=== PATIENT | female | born 1965 | race Caucasian/White ===

== ENCOUNTER → 2021-08-10 10:26 | Outpatient (CLI) | payer OTHER, SELFPAY ==
--- NOTE | 2021-08-10 | DI.MG.S_ITS ---
BILATERAL DIGITAL SCREENING MAMMOGRAM 3D/2D WITH CAD WITH AUGMENTATION: 08/10/2021 CLINICAL: Routine screening. Comparison is made to exams dated: 05/09/2017 mammogram and 07/14/2018 mammogram - outside facility. There are scattered fibroglandular elements in both breasts. Current study was also evaluated with a Computer Aided Detection (CAD) system. No significant masses, calcifications, or other findings are seen in either breast. There has been no significant interval change. IMPRESSION: NEGATIVE There is no mammographic evidence of malignancy. A 1 year screening mammogram is recommended. This exam was interpreted at Station ID: [id number]. NOTE: For mammograms, a report in lay terms will be sent to the patient. Approximately 15% of breast malignancies will not be visualized mammographically. In the management of a palpable breast mass, a negative mammogram must not discourage biopsy of a clinically suspicious lesion. Electronically Signed By: Sam Castaneda M.D., jr/tyrone:08/12/2021 08:51:50 letter sent: Normal Exam ACR BI-RADS Category 1: Negative 3341F
== END ==
PROVIDERS: PCP Nurse Practitioner Family; Referring Provider Nurse Practitioner Family; Visit Provider Nurse Practitioner Family
DX: Z12.31 Encounter for screening mammogram for malignant neoplasm of breast (principal)
CPT/HCPCS: 77063; 77067

== ENCOUNTER → 2022-03-15 07:56 | Outpatient (CLI) | payer OTHER, SELFPAY ==
[2022-03-15 09:34] LABS: Add Manual Diff / Slide Review NO; Basophils Absolute Auto 0 /uL (0-100); Basophils Percent Auto 0.8 % (0-2); Eosinophils Absolute Auto 100 /uL (0-450); Eosinophils Percent Auto 1.5 % (2-4); Hematocrit 42.3 % (36-46); Hemoglobin 14.1 g/dL (12.0-16.0); Lymphocytes Absolute Auto 1500 /uL (1100-4500); Lymphocytes Percent Auto 33.9 % (25-40); Mean Corpuscular HGB Conc 33.5 % (30-36); Mean Corpuscular Hemoglobin 29.4 PG (26-34); Mean Corpuscular Volume 87.7 fL (80-100); Monocytes Absolute Auto 200 /uL (0-900); Monocytes Percent Auto 5.3 % (3-14); Neutrophils Absolute Auto 2500 /uL (1500-7000); Neutrophils Percent Auto 58.5 % (50-75); Platelet Count 204 X10^3/uL (150-400); Red Blood Cell Count 4.82 X10^6/uL (4.0-5.2); Red Cell Distribution Width 13.9 % (11.6-14.8); White Blood Cell Count 4.3 X10^3/uL (4.5-11.0)
[2022-03-15 09:54] LABS: Erythrocyte Sedimentation Rate 2 MM/HR (0-20)
[2022-03-15 10:10] LABS: Alanine Aminotransferase 27 IU/L (<35); Albumin 4.4 g/dL (3.5-5.0); Albumin Globulin Ratio 1.6 (1.0-2.8); Alkaline Phosphatase 42 U/L (38-126); Amylase 53 U/L (30-110); Aspartate Aminotransferase 32 IU/L (14-36); BUN Creatinine Ratio 24.6 (6-22); Bilirubin Total 1.1 mg/dL (0.2-1.3); Blood Urea Nitrogen 17 mg/dL (7-17); Calcium 9.1 mg/dL (8.4-10.2); Carbon Dioxide 26 mmol/L (22-32); Chloride 105 mmol/L (98-107); Estimated Glomerular Filt Rate > 60 mL/min (>60); Globulin 2.7 g/dL (1.7-4.1); Glucose 80 mg/dL (70-100); HEMOLYSIS < 15 (0-50); Lipase 103 U/L (23-300); Potassium 4.8 mmol/L (3.4-5.1); Sodium 141 mmol/L (137-145); Total Protein 7.1 g/dL (6.3-8.2)
[2022-03-15 10:14] LABS: High Sensitivity CRP - Cardiac 0.5 mg/L (1.0-3.0)
[2022-03-15 10:48] LABS: TSH w/ Reflex to FT4 0.11 uIU/mL (0.47-4.68)
[2022-03-15 11:22] LABS: Free T4, Direct Thyroxine 0.87 ng/dL (0.78-2.19)
[2022-03-17 07:42] LABS: Interpretation Negative (Negative)
== END ==
PROVIDERS: PCP Nurse Practitioner Family
DX: R10.9 Unspecified abdominal pain (principal)
CPT/HCPCS: 36415; 80053; 82150; 83013; 83690; 84439; 84443; 85025; 85651; 86140

== ENCOUNTER → 2022-04-30 14:39 | Outpatient (CLI) | payer OTHER, SELFPAY ==
--- NOTE | 2022-04-30 14:40 | DI.CT.S_ITS ---
PROCEDURE: CT ABDOMEN PELVIS W CON INDICATIONS: ABNORMAL TSH, ABDOMINAL PAIN TECHNIQUE: After the administration of oral and intravenous contrast, axial sections were acquired from the lung bases to the pubic symphysis. Coronal and sagittal reformats were performed. For radiation dose reduction, the following was used: automated exposure control, adjustment of mA and/or kV according to patient size. COMPARISON:None. FINDINGS: Image quality: Excellent. Lung bases: Unremarkable. The inferior aspects of the bilateral breast implants are intact. Heart: No significant findings. ABDOMEN: Liver: Unremarkable. Gallbladder: Surgically absent. Biliary ducts: Unremarkable. Pancreas: Unremarkable. Spleen: Unremarkable. Adrenal Glands: Unremarkable. Kidneys and Ureters: Unremarkable. Stomach and Bowel: The stomach has a normal appearance and is gas and contrast filled. There is no expected duodenal sweep at the ligament of Treitz. The proximal and mid small bowel is located predominantly within the right mid abdomen. The colon is located in type early within the left abdomen and pelvis. The cecum is located posteriorly within the pelvis. The appendix has a normal appearance and is thin walled, gas-filled and located within the posterior pelvis (series 2/image 72). No bowel dilatation or findings to suggest obstruction or ileus. Peritoneum: No abnormal intraperitoneal fluid. No free air. Ventral Wall: No hernia. Abdominal Nodes: No retroperitoneal or mesenteric adenopathy by size criteria. Vessels: Aorta and inferior vena cava are normal in size. PELVIS: Pelvic Organs: Unremarkable. Bladder: Unremarkable. Pelvic Nodes: No enlarged lymph nodes. Miscellaneous: No inguinal hernias are seen. Bones: Unremarkable. IMPRESSION: 1. No acute intra-abdominal findings. Normal appendix. 2. Findings consistent with intestinal malrotation with the small bowel located in the right abdomen and the colon located within the left abdomen and pelvis. No findings to suggest volvulus, obstruction or ileus at this time. Dictated by: Angela Mcnally M.D. on 04/30/2022 at 16:34 Approved by: Angela Mcnally M.D. on 04/30/2022 at 16:39
--- NOTE | 2022-04-30 14:40 | DI.US.S_ITS ---
PROCEDURE: US THYROID INDICATIONS: ABNORMAL TSH TECHNIQUE: Real-time scanning was performed of the thyroid gland, with image documentation. COMPARISON: None. FINDINGS: Right: Thyroid lobe measures 4.5 x 1.5 x 1.3 cm, and is homogeneous in echotexture. Left: Thyroid lobe measures 4.1 x 1.2 x 1.0 cm, and is homogenous in echotexture. Isthmus: Two mm thick. Nodule number: 1 Location: Right mid to lower pole Size: 2.6 x 1.9 x 1.2 cm. Composition: Solid Echogenicity: Isodose hypoechoic Shape: wider than tall. Margins: Smooth Echogenic foci: No Total points: Four ACR TI-RADS category: Moderately suspicious Nonenlarged lateral compartment lymph node seen in the right neck. Single prominent elongated lymph node in the left neck measuring 3 mm in short axis. IMPRESSION: 1. Single dominant nodule in the right thyroid lobe with moderately suspicious characteristics. Fine-needle aspiration is recommended. ACR TI-RADS definitions and recommendations: TI-RADS 1 (benign): 0 points. FNA not needed. TI-RADS 2 (not suspicious): 2 points. FNA not needed. TI-RADS 3 (mildly suspicious): 3 points. * FNA if 2.5 cm or larger, follow up if 1.5 cm or larger (at 1, 3, and 5 years). TI-RADS 4 (moderately suspicious): 4-6 points. * FNA if 1.5 cm or larger, follow up if 1 cm or larger (at 1, 2, 3, and 5 years). TI-RADS 5 (highly suspicious): 7 points or more. * FNA if 1 cm or larger, follow up if 0.5 cm or larger (every year for 5 years). Dictated by: Shreya Barker M.D. on 04/30/2022 at 16:30 Approved by: Shreya Barker M.D. on 04/30/2022 at 16:33
== END ==
PROVIDERS: PCP Nurse Practitioner Family; Referring Provider Internal Medicine Gastroenterology; Visit Provider Internal Medicine Gastroenterology
DX: R10.9 Unspecified abdominal pain (principal); R79.89 Other specified abnormal findings of blood chemistry; E04.1 Nontoxic single thyroid nodule
CPT/HCPCS: 74177; 76536; Q9967

== ENCOUNTER → 2022-06-20 14:53 | Outpatient (CLI) | payer OTHER, SELFPAY ==
--- NOTE | 2022-06-20 14:55 | DI.CT.S_ITS ---
PROCEDURE: CT SOFT TISSUE NECK W CON INDICATIONS: MALIGNANT NEOPLASM OF THYROID GLAND TECHNIQUE: After the administration of intravenous contrast, 3.0 mm axial sections acquired from the sella to the aortic arch. Additional oblique axial 3.0 mm sections acquired through the pharynx. 3 mm thick coronal and sagittal reformats were generated. For radiation dose reduction, the following was used: automated exposure control. COMPARISON: None. FINDINGS: Image quality: Excellent. Lymph nodes: Bilateral scattered deep cervical and submandibular lymph nodes without enlargement. Vessels: Visualized vasculature appears patent. Neck spaces: The oropharynx, nasopharynx, and pharynx demonstrate no mucosal lesions. The vocal cords, false vocal cords, pyriform sinuses, epiglottis, vallecula, and tongue base all appear normal. Extramucosal spaces appear unremarkable. Glands: The parotid and submandibular glands appear normal. Thyroid gland shows right-sided 2.5 cm heterogenous nodule Miscellaneous: Visualized brain and orbits appear normal. Lung apices appear clear. Superficial soft tissues appear normal. Bones: No suspicious bony lesions. Visualized sinuses and mastoids appear unremarkable. IMPRESSION: Bilateral nonenlarged normal appearing deep cervical and submandibular lymph nodes without evidence of adenopathy 2.5 cm heterogenous right thyroid nodule Approved by: Jc Downey M.D. on 06/20/2022 at 18:02
== END ==
PROVIDERS: PCP Nurse Practitioner Family; Referring Provider Nurse Practitioner Family; Visit Provider Otolaryngology
DX: C73 Malignant neoplasm of thyroid gland (principal)
CPT/HCPCS: 70491; Q9967

== ENCOUNTER 2022-07-21 08:26 | Day surgery (SDC) | payer OTHER, SELFPAY ==
[2022-07-21 08:52] VITALS: BP 143/83; PULSE 62; RESP 16; TEMP 37; O2SAT 99; BMI 26.6
--- NOTE | 2022-07-21 09:01 | PM.HP.1 ---
History of Present Illness History of Present Illness Date Patient Seen: 07/21/22 Time Patient Seen: 09:01 Chief complaint: DX COLONOSCOPY W/POSS BX Narrative: I reviewed Dr. Garcia's note no significant changes. There was a CT scan accomplished. Colonoscopy was ordered post CT scan for further evaluation of the abdominal pain.. Patient History Medical History Acne Surgical History H/O thyroidectomy Meds Home Medications and Allergies Home Medications Medication Instructions Recorded Confirmed Type doxycycline hyclate See Rx Instructions .Route .COMPLEX 07/21/22 07/21/22 History Allergies Allergy/AdvReac Type Severity Reaction Status Date / Time Penicillins Allergy Verified 07/21/22 08:46 Review of Systems Review of Systems ROS: Yes All systems reviewed with the patient and are negative except as otherwise documented Exam Const General: cooperative HENMT Head: normal to inspection Eyes General: appearance normal, both eyes and all related structures Neck Neck: normal visual inspection Chest Chest: normal inspection of the chest Resp Effort & Inspection: normal respiratory effort Cardio Rate: regular rate GI Inspection: normal to inspection Skin General: no rashes or lesions noted Neuro General: patient alert and patient awake Extrem General: normal to inspection and no pedal edema Psych Appearance: grossly normal Assessment & Plan Assessment & Plan narrative: 56-year-old female with intermittent spells of abdominal pain. She has intestinal malrotation at CT scan. Colonoscopy was ordered for today for further evaluation of her symptoms. Time Spent With Patient Critical Care time: I spent a total of [] minutes of critical care time on this patient's care today; this time is exclusive of procedural time.
[2022-07-21] MEDS: LACTATED RINGERS 1,000 ML 42 ML IV (09:14)
--- NOTE | 2022-07-21 09:46 | PM.PREOP ---
Pre-operative Note COVID-19 COVID-19 status: Negative Result date/Date tested (Pos, Neg/Pending): 07/19/22 Criteria for continued procedure: Possibility delay results in more complex future surgery or treatment Interval Note History & Physical reviewed/Exam performed by Physician: Yes Changes to H&P: No ASA Class (for procedural sedation): II
--- NOTE | 2022-07-21 10:06 | PM.OP.COLON ---
Operative Date/Time/Diagnoses Date of procedure: 07/21/22 Time of procedure: 10:06 Pre-op diagnosis: Abdominal pain Post-op diagnosis: same Procedure & Clinicians Study performed: Colonoscopy Same procedure as scheduled: Yes Indications: Abdominal pain Surgeon: Baron Canales Procedure Notes SCOAP/Timeout: Done Procedure in detail: After the risks and benefits were explained, written and verbal informed consent was obtained. The patient was brought into the procedure room and placed into the left lateral decubitus position. Please see anesthesia note for sedation details. Digital rectal examination was accomplished. The scope was introduced into the patient and advanced under direct visualization to the cecum as identified by the appendiceal orifice and ileocecal valve. The scope was slowly withdrawn to carefully examine the mucosa for any defects or lesions. Comprehensive imaging was accomplished throughout the rectum including the dentate line. The colon was decompressed, the scope was then removed from the patient who tolerated the procedure well. Pediatric colonoscope Bowel prep adequate Scope withdrawal time: 7 minutes Sedation minutes: 16 Specimen(s): none sent Complications: none Impression: Patient had a fairly tortuous colon rendering navigation somewhat challenging. No significant polyps mass lesions or inflammatory features identified throughout. The terminal ileum was interrogated and appeared normal. Endoscopic diagnosis 1. Slightly tortuous colon 2. Otherwise visually normal exam Post-procedure Plan for aftercare: Follow-up in GI clinic with Dr. Garcia to discuss the next steps. No obvious findings were made today to account for symptoms. Disposition: PACU
[2022-07-21 10:09] VITALS: BP 114/65; PULSE 56; RESP 16; TEMP 36.2; O2SAT 99
[2022-07-21 10:14] VITALS: BP 118/72; PULSE 58; RESP 16; TEMP 36.2; O2SAT 100
[2022-07-21 10:17] VITALS: BP 117/78; PULSE 53; RESP 16; O2SAT 98
[2022-07-21 10:22] VITALS: BP 114/72; PULSE 53; RESP 18; TEMP 36.8; O2SAT 98
[2022-07-21 10:32] VITALS: BP 130/90; PULSE 58; RESP 14; TEMP 36.3; O2SAT 98
== END 2022-07-21 10:42 | disposition home or self-care (01) ==
PROVIDERS: PCP Nurse Practitioner Family; Referring Provider Internal Medicine Gastroenterology; Visit Provider Internal Medicine Gastroenterology
PROC: 0DJD8ZZ Inspection of Lower Intestinal Tract, Via Natural or Artificial Opening Endoscopic (ICD-10-PCS; CPT 45378; principal; 2022-07-21 09:30)
DX: R10.9 Unspecified abdominal pain (principal)
CPT/HCPCS: 45378; J2704; J3010

== ENCOUNTER → 2023-03-14 09:32 | Outpatient (CLI) | payer OTHER, SELFPAY ==
--- NOTE | 2023-03-14 09:33 | DI.MG.S_ITS ---
BILATERAL DIGITAL SCREENING MAMMOGRAM 3D/2D WITH CAD WITH AUGMENTATION: 03/14/2023 CLINICAL: Routine screening. Comparison is made to exams dated: 08/10/2021 mammogram - [facility], 07/14/2018 mammogram, and 05/09/2017 mammogram - outside facility. There are scattered areas of fibroglandular density in both breasts (category b / 25%-50% glandular tissue). Current study was also evaluated with a Computer Aided Detection (CAD) system. Bilateral breast implants are present. No significant masses, calcifications, or other findings are seen in either breast. There has been no significant interval change. IMPRESSION: NEGATIVE There is no mammographic evidence of malignancy. A 1 year screening mammogram is recommended. Based on the Tyrer Cuzick model (a risk assessment model) the patient's lifetime risk is 6.8% and her 10 year risk is 2.3%. According to the ACR, ACS, and NCCN guidelines, an annual breast MRI exam along with mammogram is recommended if the patient's lifetime risk is 20% or greater. This exam was interpreted at Station ID: [id number]. NOTE: For mammograms, a report in lay terms will be sent to the patient. Approximately 15% of breast malignancies will not be visualized mammographically. In the management of a palpable breast mass, a negative mammogram must not discourage biopsy of a clinically suspicious lesion. Electronically Signed By: Colton nolasco/tyrone:03/16/2023 07:32:02 letter sent: Normal Exam ACR BI-RADS Category 1: Negative 3341F
== END ==
PROVIDERS: PCP Nurse Practitioner Family; Referring Provider Nurse Practitioner Family; Visit Provider Nurse Practitioner Family
DX: Z12.31 Encounter for screening mammogram for malignant neoplasm of breast (principal)
CPT/HCPCS: 77063; 77067

== ENCOUNTER → 2024-05-05 07:59 | Outpatient (CLI) | payer OTHER, SELFPAY ==
--- NOTE | 2024-05-05 08:01 | DI.MG.S_ITS ---
BILATERAL DIGITAL SCREENING MAMMOGRAM 3D/2D WITH CAD WITH AUGMENTATION: 05/05/2024 CLINICAL: Routine screening. Comparison is made to exams dated: 03/14/2023 mammogram, 08/10/2021 mammogram - [facility], 07/14/2018 mammogram, and 05/09/2017 mammogram - outside facility. There are scattered areas of fibroglandular density (category b / 25%-50% glandular tissue). Current study was also evaluated with a Computer Aided Detection (CAD) system. Bilateral breast implants are intact. No significant masses, calcifications, or other findings are seen in either breast. There has been no significant interval change. IMPRESSION: NEGATIVE There is no mammographic evidence of malignancy. A 1 year screening mammogram is recommended. Based on the Tyrer Cuzick model (a risk assessment model) the patient's lifetime risk is 6.7% and her 10 year risk is 2.4%. According to the ACR, ACS, and NCCN guidelines, an annual breast MRI exam along with mammogram is recommended if the patient's lifetime risk is 20% or greater. This exam was interpreted at Station ID: [id number]. NOTE: For mammograms, a report in lay terms will be sent to the patient. Approximately 15% of breast malignancies will not be visualized mammographically. In the management of a palpable breast mass, a negative mammogram must not discourage biopsy of a clinically suspicious lesion. Electronically Signed By: Partha alberts/tyrone:05/05/2024 18:07:30 letter sent: Normal Exam ACR BI-RADS Category 1: Negative
== END ==
PROVIDERS: PCP Family Medicine; Referring Provider Family Medicine; Visit Provider Family Medicine
DX: Z12.31 Encounter for screening mammogram for malignant neoplasm of breast (principal)
CPT/HCPCS: 77063; 77067

== ENCOUNTER → 2024-08-26 16:03 | Outpatient (CLI) | payer OTHER, SELFPAY ==
[2024-08-29 11:13] LABS: Candida species Negative (Negative); Gardnerella vaginalis Negative (Negative); Trichomoas vaginalis Negative (Negative)
== END ==
PROVIDERS: PCP Family Medicine; Visit Provider Student in an Organized Health Care Education/Training Program
DX: N94.89 Other specified conditions associated with female genital organs and menstrual cycle (principal)
CPT/HCPCS: 87480; 87510; 87660